=== PATIENT | male | born 1980 | race Caucasian/White ===

== ENCOUNTER 2018-04-09 08:59 | Emergency (ER) | payer BC ==
[2018-04-09 09:25] VITALS: BP 137/83
--- NOTE | 2018-04-09 09:43 | RAD ---
INDICATION: Hemoptysis, cough. Shortness of breath. COMPARISON: No relevant prior exams available on the [facility] PACS for comparison. TECHNIQUE: Dual energy PA and routine lateral views of the chest were obtained. REPORT: Clear lungs and pleural spaces. Negative for pneumothorax. The heart, pulmonary vasculature, and mediastinal contours are unremarkable. Gallbladder fossa level surgical clips noted. Unremarkable osseous structures and soft tissue contours. IMPRESSION: #. No evidence for acute intrathoracic disease.
--- NOTE | 2018-04-09 09:47 | ED ---
Respiratory - HPI Summary HPI Summary: 37 YO M c/o hemoptysis. Has been having bronchitis sx for 2 weeks with cough and yellow/green sputum. The yellow/green has improved. Last PM coughed up blood, a dime sized clot, twice. This am his sputum was blood streaked. No fever. Mild SOB and wheezing. Has been using albuterol which helps. No chest pain. - History of Current Complaint Chief Complaint: UCRespiratory Stated Complaint: COUGH/CONGESTION Time Seen by Provider: 04/09/18 09:05 Onset/Duration: Lasting Weeks Timing: Constant Current Severity: Mild Pain Intensity: 4 Sputum Amount: Small Sputum Color: Small Clots Aggravating Factor(s): URI Alleviating Factor(s): MDI (Frequency Of Use) Associated Signs and Symptoms: SOB, URI, Wheezing - Risk Factors Status Asthmaticus Risk Factors: Negative - Allergy/Home Medications Allergies/Adverse Reactions: Allergies Allergy/AdvReac Type Severity Reaction Status Date / Time No Known Allergies Allergy Verified 04/09/18 09:16 PMH/Surg Hx/FS Hx/Imm Hx Previously Healthy: No - uses cpap Endocrine/Hematology History: Denies: Hx Diabetes Cardiovascular History: Denies: Hx Hypertension, Hx Pacemaker/ICD History: Denies: Hx Renal Disease Sensory History: Denies: Hx Hearing Aid Psychiatric History: Denies: Hx Panic Disorder - Surgical History Surgery Procedure, Year, and Place: GALLBLADDER Infectious Disease History: No Infectious Disease History: Denies: Traveled Outside the [place] in Last 30 Days - Social History Alcohol Use: Occasionally Substance Use Type: Reports: None Smoking Status (MU): Current Some Day Smoker Type: Cigarettes Amount Used/How Often: 1 PACK PER WEEK Review of Systems Positive: Fatigue Eyes: Negative Positive: Nasal Discharge Negative: Chest Pain Positive: Shortness Of Breath, Cough Gastrointestinal: Negative Genitourinary: Negative Musculoskeletal: Negative Skin: Negative Neurological: Negative Psychological: Normal All Other Systems Reviewed And Are Negative: Yes Physical Exam Triage Information Reviewed: Yes Vital Signs On Initial Exam: Initial Vitals Temp Pulse Resp BP Pulse Ox 98.6 F 76 20 137/83 97 04/09/18 09:17 04/09/18 09:17 04/09/18 09:17 04/09/18 09:17 04/09/18 09:17 Vital Signs Reviewed: Yes Appearance: Positive: Ill-Appearing - mild Skin: Positive: Warm, Skin Color Reflects Adequate Perfusion Head/Face: Positive: Normal Head/Face Inspection Eyes: Positive: Normal, EOMI, SENIA ENT: Positive: Nasal congestion Neck: Positive: Supple Respiratory/Lung Sounds: Positive: Wheezes Cardiovascular: Positive: RRR Musculoskeletal: Positive: Normal. Negative: Edema Left, Edema Right Neurological: Positive: Normal Psychiatric: Positive: Normal Diagnostics - Vital Signs Vital Signs Temp Pulse Resp BP Pulse Ox 04/09/18 09:17 98.6 F 76 20 137/83 97 - Laboratory Lab Statement: Any lab studies that have been ordered have been reviewed, and results considered in the medical decision making process. Disposition - Course Assessment/Plan: DISCUSSED RESULTS WITH THE PATIENT. RX ZPAC AND ALBUTEROL. DISCUSSED F/U PMD TO DETERMINE IF FURTHER EVALUATION/CHEST CT NEEDED. RECHECK SOONER IF WORSE. - Diagnoses Provider Diagnoses: Bronchitis with bronchospasm, Hemoptysis Discharge - Sign-Out/Discharge Documenting (check all that apply): Patient Departure - Discharge Plan Condition: Stable Disposition: HOME Prescriptions: Albuterol HFA INHALER* [Ventolin HFA Inhaler*] 2 puff INH Q4H PRN #1 mdi PRN Reason: Wheezing Azithromycin TAB* [Zithromax TAB (Z-MARITZA) 250 mg #6 tabs] 2 tab PO .TODAY, THEN 1 DAILY #1 maritza Patient Education Materials: Acute Bronchitis (ED), Hemoptysis (ED), Bronchospasm (ED) Referrals: Will Prado MD [Primary Care Provider] - Additional Instructions: FOLLOW UP WITH YOUR DOCTOR AND DISCUSS IF YOU NEED ANY MORE TESTING FOR YOUR HEMOPTYSIS. GET RECHECKED FOR ANY WORSENING OF YOUR CONDITION; PAIN, SHORTNESS OF BREATH, YOU COUGH UP MORE BLOOD OR QUESTIONS OR CONCERNS. - Billing Disposition and Condition Condition: STABLE Disposition: Home
== END 2018-04-09 10:00 | disposition home or self-care (01) ==
LOC: UCCORT 08:59
DX: J20.9 Acute bronchitis, unspecified (principal); R04.2 Hemoptysis; F17.210 Nicotine dependence, cigarettes, uncomplicated
CPT/HCPCS: 71046; 99212; G0463

== ENCOUNTER 2019-01-13 08:22 | Emergency (ER) | payer BC ==
[2019-01-13 08:32] VITALS: BP 139/83
--- NOTE | 2019-01-13 08:40 | UC ---
General HPI - HPI Summary HPI Summary: day #3 of runny nose, sore throat and cough with chest congestion. no fever, asthma or copd. occasional wheezing. using an old mdi with some relief from cough and wheezing. - History of Current Complaint Chief Complaint: UCRespiratory Stated Complaint: COUGH Time Seen by Provider: 01/13/19 08:30 Hx Obtained From: Patient Onset/Duration: Gradual Onset Timing: Constant Pain Intensity: 0 Associated Signs & Symptoms: Positive: Cough, Wheezing. Negative: Chest Pain, Fever, SOB - Allergy/Home Medications Allergies/Adverse Reactions: Allergies Allergy/AdvReac Type Severity Reaction Status Date / Time No Known Allergies Allergy Verified 01/13/19 08:28 PMH/Surg Hx/FS Hx/Imm Hx Respiratory History: Bronchitis, Pneumonia - Surgical History Surgical History: Yes Surgery Procedure, Year, and Place: GALLBLADDER - Family History Known Family History: Positive: Non-Contributory - Social History Lives: With Family Alcohol Use: Occasionally Substance Use Type: None Smoking Status (MU): Current Some Day Smoker Type: Cigarettes Amount Used/How Often: 1 PACK PER WEEK Review of Systems All Other Systems Reviewed And Are Negative: Yes Constitutional: Negative: Fever Cardiovascular: Negative: Palpitations, Chest Pain Physical Exam Triage Information Reviewed: Yes Appearance: Well-Appearing Vital Signs: Initial Vital Signs Temp 98.1 F 01/13/19 08:29 Pulse 108 01/13/19 08:29 Resp 17 01/13/19 08:29 BP 139/83 01/13/19 08:29 Pulse Ox 97 01/13/19 08:29 Vital Signs Reviewed: Yes Eyes: Positive: Conjunctiva Clear ENT: Positive: Pharyngeal erythema, Nasal congestion, Nasal drainage - clear Neck: Positive: Supple, Nontender, No Lymphadenopathy Respiratory: Positive: Lungs clear, Normal breath sounds, No respiratory distress, Other: - npc Cardiovascular: Positive: RRR, No Murmur Abdomen Description: Positive: Nontender Musculoskeletal: Positive: ROM Intact Neurological: Positive: Alert Psychological: Positive: Age Appropriate Behavior Skin Exam: Normal Course/Dx - Course Course Of Treatment: BP ELEVATED, NO HX HTN THUS LIKELY ILLNESS RELATED. WILL HAVE RECHECK ON F/U VISIT. RAPID STREP=NEGATIVE - Diagnoses Provider Diagnosis: URI (upper respiratory infection), Pharyngitis, Bronchitis Discharge - Sign-Out/Discharge Documenting (check all that apply): Patient Departure All imaging exams completed and their final reports reviewed: No Studies - Discharge Plan Condition: Stable Disposition: HOME Prescriptions: predniSONE TAB* [Deltasone TAB*] 50 mg PO DAILY 5 Days #5 tab Patient Education Materials: Upper Respiratory Infection (DC), Acute Bronchitis (ED) Referrals: Will Prado MD [Primary Care Provider] - 7 Days Additional Instructions: USE RESCUE INHALER 2 PUFFS EVERY 6 HOURS - Billing Disposition and Condition Condition: STABLE Disposition: Home - Attestation Statements Provider Attestation: I was available for consult. This patient was seen by the LANIE. The patient was not presented to , seen by or examined by -Keyanna Davila MD
== END 2019-01-13 09:14 | disposition home or self-care (01) ==
LOC: UCCORT 08:22
DX: J06.9 Acute upper respiratory infection, unspecified (principal); J02.9 Acute pharyngitis, unspecified; J40 Bronchitis, not specified as acute or chronic; R05 Cough; R09.89 Other specified symptoms and signs involving the circulatory and respiratory systems; F17.210 Nicotine dependence, cigarettes, uncomplicated; Z87.09 Personal history of other diseases of the respiratory system; Z87.01 Personal history of pneumonia (recurrent)
CPT/HCPCS: 87651; 99212; G0463

== ENCOUNTER 2019-02-22 09:35 | Emergency (ER) | payer BC ==
[2019-02-22 09:59] VITALS: BP 139/92
--- NOTE | 2019-02-22 10:45 | UC ---
Complaint Male HPI - HPI Summary HPI Summary: SUDDEN ONSET OF PAIN AT THE PENILE MEATUS ABOUT 7:45 AM WHILE DRIVING TO WORK. HE HAD SOME URINARY URGENCY AT THAT TIME AND THEN ABOUT 9:00AM ALL SYMPTOMS RESOLVED. NO NAUSEA, NO FEVER. DECIDED TO COME TO FOR FURTHER EVALUATION. UPON PROVIDING A URINE SAMPLE HE PASSED A STONE. HE CONTINUES TO BE ASYMPTOMATIC. DENIES ANY PERSONAL OR FAMILY HISTORY OF KIDNEY STONES. - History of Current Complaint Chief Complaint: UCGU Stated Complaint: URINARY COMPLAINT Time Seen by Provider: 02/22/19 10:23 Hx Obtained From: Patient Onset/Duration: Sudden Onset, Lasting Minutes, Resolved Severity Initially: Moderate Severity Currently: None Pain Intensity: 0 Pain Scale Used: 0-10 Numeric Location: Penis Character: Sharp Aggravating Factor(s): Nothing Associated Signs And Symptoms: Negative: Diaphoresis, Back Pain, Fever, Hematuria, Dysuria, Nausea, Penile Swelling, Penile Discharge - Allergies/Home Medications Allergies/Adverse Reactions: Allergies Allergy/AdvReac Type Severity Reaction Status Date / Time No Known Allergies Allergy Verified 02/22/19 09:59 PMH/Surg Hx/FS Hx/Imm Hx - Additional Past Medical History Additional PMH: SLEEP APNEA - Surgical History Surgical History: Yes Surgery Procedure, Year, and Place: GALLBLADDER - Family History Known Family History: Positive: Non-Contributory - Social History Alcohol Use: Occasionally Substance Use Type: None Smoking Status (MU): Current Some Day Smoker Type: Cigarettes Amount Used/How Often: 1 PACK PER WEEK Review of Systems All Other Systems Reviewed And Are Negative: Yes Constitutional: Positive: Negative Skin: Positive: Negative Respiratory: Positive: Negative Cardiovascular: Positive: Negative Gastrointestinal: Positive: Negative Genitourinary: Positive: Urgency, Vaginal/Penile Pain Physical Exam Triage Information Reviewed: Yes Appearance: Well-Appearing, No Pain Distress, Well-Nourished Vital Signs: Initial Vital Signs Temp 98.5 F 02/22/19 09:51 Pulse 109 02/22/19 09:51 Resp 18 02/22/19 09:51 BP 139/92 02/22/19 09:51 Pulse Ox 99 02/22/19 09:51 Laboratory Tests 02/22/19 10:24 POC Urine Color Yellow POC Urine Clarity Clear POC Urine pH 5.5 POC Ur Specif [place] >= 1.030 POC Urine Protein 2+ A POC Ur Glucose (UA) Negative POC Urine Ketones 2+ A POC Urine Blood 3+ A POC Urine Nitrite Negative POC Urine Bilirubin 2+ A POC Urine Urobilinogen 0.2 POC U Leukocyte Esteras Negative Eyes: Positive: Conjunctiva Clear ENT: Positive: Hearing grossly normal Neck: Positive: Supple Respiratory: Positive: No respiratory distress, No accessory muscle use Cardiovascular: Positive: Pulses Normal Abdomen Description: Positive: Soft. Negative: CVA Tenderness (R), CVA Tenderness (L), Distended, Guarding Musculoskeletal: Positive: No Edema Neurological: Positive: Alert Psychological: Positive: Age Appropriate Behavior Skin: Negative: Rashes Diagnostics - Radiology CT ABD/PELVIS W/O CONTRAST Radiology Interpretation Completed By: Radiologist Summary of Radiographic Findings: 1. NO HYDRONEPHROSIS OR NEPHROLITHIASIS. 2. HEPATOMEGALY WITH FATTY INFILTRATION OF THE LIVER. Complaint Male Course/Dx - Course Course Of Treatment: PATIENT PASSED A 2-3 MM STONE WHILE HERE IN THE URGENT CARE. HE IS CURRENTLY ASYMPTOMATIC. CT ABD/PELVIS UNREMARKABLE - NO OTHER STONES OR HYDRONEPHROSIS. FOLLOW-UP WITH UROLOGY. HE WILL BRING THE STONE WITH HIM FOR ANALYSIS AT UROLOGY'S DISCRETION. ENCOURAGED TO STAY WELL-HYDRATED. - Differential Dx/Diagnosis Provider Diagnosis: Kidney stone Discharge - Sign-Out/Discharge Documenting (check all that apply): Patient Departure All imaging exams completed and their final reports reviewed: Yes - Discharge Plan Condition: Stable Disposition: HOME Patient Education Materials: Kidney Stones (ED) Referrals: [facility] [Provider Group] - 2 Weeks iWll Prado MD [Primary Care Provider] - If Needed Additional Instructions: YOU PASSED A KIDNEY STONE WHILE HERE IN THE URGENT CARE. CALL UROLOGY AND SCHEDULE A FOLLOW-UP APPOINTMENT FOR FURTHER EVALUATION. BRING YOUR STONE WITH YOU THEY MAY CHOOSE TO SEND IT FOR ANALYSIS. BE SURE TO STAY WELL-HYDRATED. CT SCAN TODAY DID NOT SHOW ANY FURTHER KIDNEY STONES. - Billing Disposition and Condition Condition: STABLE Disposition: Home
== END 2019-02-22 11:20 | disposition home or self-care (01) ==
LOC: UCCORT 09:35
DX: N20.0 Calculus of kidney (principal); F17.210 Nicotine dependence, cigarettes, uncomplicated; K76.0 Fatty (change of) liver, not elsewhere classified
CPT/HCPCS: 74176; 81003; 99211; G0463

== ENCOUNTER 2019-10-23 15:49 | Emergency (ER) | payer BC ==
[2019-10-23 16:21] VITALS: BP 131/73
[2019-10-23 16:32] LABS: Influenza A Molecular Negative (Negative); Influenza B Molecular Negative (Negative)
--- NOTE | 2019-10-23 17:05 | UC ---
Throat Pain/Nasal Shayan HPI - HPI Summary HPI Summary: 39-year-old male comes in with a chief complaint of a pressure tract infection symptoms for one day. He's had some sore throat and clear rhinorrhea. No shortness of breath. No bodyaches. He does take over the counter medicines which have helped some symptoms. - History of Current Complaint Chief Complaint: UCRespiratory Stated Complaint: SORE THROAT Time Seen by Provider: 10/23/19 16:40 Pain Intensity: 3 - Allergies/Home Medications Allergies/Adverse Reactions: Allergies Allergy/AdvReac Type Severity Reaction Status Date / Time No Known Allergies Allergy Verified 10/23/19 16:11 Home Medications: Home Medications Dextromethorphan Polistirex [Delsym] 30 mg PO ONCE PRN 10/23/19 [History Confirmed 10/23/19] PMH/Surg Hx/FS Hx/Imm Hx Previously Healthy: Yes - Surgical History Surgical History: Yes Surgery Procedure, Year, and Place: GALLBLADDER - Family History Known Family History: Positive: Non-Contributory - Social History Alcohol Use: Weekly Alcohol Amount: 12 Substance Use Type: None Smoking Status (MU): Light Every Day Tobacco Smoker Type: Cigarettes Amount Used/How Often: 1 PACK PER WEEK Review of Systems All Other Systems Reviewed And Are Negative: Yes Constitutional: Positive: Other - see hpi Skin: Positive: Negative Eyes: Positive: Negative ENT: Positive: Sore Throat, Nasal Discharge, Sinus Congestion Respiratory: Positive: Negative Cardiovascular: Positive: Negative Gastrointestinal: Positive: Negative Motor: Positive: Negative Neurovascular: Positive: Negative Musculoskeletal: Positive: Negative Neurological: Positive: Negative Psychological: Positive: Negative Is Patient Immunocompromised?: No Physical Exam Triage Information Reviewed: Yes Appearance: Well-Appearing, No Pain Distress, Well-Nourished Vital Signs: Initial Vital Signs Temp 98.4 F 10/23/19 16:14 Pulse 84 10/23/19 16:14 Resp 18 10/23/19 16:14 BP 131/73 10/23/19 16:14 Pulse Ox 99 10/23/19 16:14 Vital Signs Reviewed: Yes Eye Exam: Normal Eyes: Positive: Conjunctiva Clear ENT: Positive: Pharyngeal erythema, Nasal congestion, Nasal drainage, TMs normal Neck: Positive: Supple Respiratory: Positive: Lungs clear, Normal breath sounds, No respiratory distress Cardiovascular: Positive: RRR Musculoskeletal: Positive: Strength Intact, ROM Intact Neurological: Positive: Alert, Muscle Tone Normal Psychological: Positive: Normal Response To Family, Age Appropriate Behavior Skin Exam: Normal Throat Pain/Nasal Course/Dx - Differential Dx/Diagnosis Provider Diagnosis: Upper respiratory infection Discharge ED - Sign-Out/Discharge Documenting (check all that apply): Patient Departure All imaging exams completed and their final reports reviewed: No Studies - Discharge Plan Condition: Stable Disposition: HOME Patient Education Materials: Upper Respiratory Infection (ED) Referrals: Will Prado MD [Primary Care Provider] - Additional Instructions: FOLLOW UP WITH YOUR DOCTOR IF NOT COMPLETELY IMPROVED. GET REEVALUATED SOONER IF NOT IMPROVING OR WORSE OR ANY QUESTIONS OR CONCERNS. - Billing Disposition and Condition Condition: STABLE Disposition: Home
== END 2019-10-23 17:13 | disposition home or self-care (01) ==
LOC: UCCORT 15:49
DX: J06.9 Acute upper respiratory infection, unspecified (principal); F17.210 Nicotine dependence, cigarettes, uncomplicated
CPT/HCPCS: 87651; 99211; G0463